=== PATIENT | male | born 1965 | race Caucasian/White ===

== ENCOUNTER 2017-06-24 18:20 | Emergency (ER) | payer MEDICAID ==
[~2017-06-24] VITALS: Ht 170.2 cm; Wt 71.0 kg
[2017-06-24] MEDS ORDERED: IBUPROFEN 800MG TABLET PO ONE (18:45)
[2017-06-24] MEDS ORDERED: MORPHINE SULFATE 4 MG/ML CPJ (NOT FOR IM USE) IV STA (20:09)
[2017-06-24] MEDS ORDERED: ONDANSETRON HCL 4MG/2ML VIAL IV STA (20:09)
[2017-06-24 20:39] LABS: BASOPHILS % 1.1 % (0.0-2.0); EOSINOPHILS % 1.7 % (0.0-5.0); HEMATOCRIT. 41.3 % (42.0-52.0); HEMOGLOBIN. 14.7 g/dL (14.0-18.0); LYMPHOCYTES % 26.6 % (20.0-50.0); MEAN CORPUSCULAR HEMOGLOBIN 29.4 pg (28.0-32.0); MEAN CORPUSCULAR VOLUME 82.7 fL (80.0-94.0); MEAN PLATELET VOLUME 6.9 fl (7.4-10.4); MONOCYTES % 6.4 % (2.0-8.0); NEUTROPHILS % 64.2 % (40.0-76.0); PLATELET 350 x1000/uL (130-400); RED CELL DISTRIBUTION WIDTH 13.9 % (11.6-14.6)
[2017-06-24 20:43] LABS: CHLORIDE 110 mEq/L (98-107)
[2017-06-24 20:46] LABS: PARTIAL THROMBOPLASTIN TIME 26.3 sec (23.4-31.0); PROTHROMBIN TIME 10.6 sec (9.4-11.6)
[2017-06-24 21:27] LABS: CLARITY URINE CLEAR (CLEAR); COLOR URINE YELLOW (YELLOW); KETONES URINE NEGATIVE (NEGATIVE); LEUKOCYTE ESTERASE URINE NEGATIVE (NEGATIVE); NITRITE URINE NEGATIVE (NEGATIVE); OCCULT BLOOD URINE NEGATIVE (NEGATIVE); PROTEIN URINE NEGATIVE (NEGATIVE); SPECIFIC GRAVITY URINE 1.022 (1.005-1.030); UROBILINOGEN URINE 0.2 E.U./dL (0.2-1.0)
[2017-06-25 00:15] VITALS: BP 110/76
== END 2017-06-25 00:15 | disposition home or self-care (01) ==
LOC: ER 18:20
DX: M54.5 Low back pain (principal); G89.29 Other chronic pain; R20.0 Anesthesia of skin; F17.200 Nicotine dependence, unspecified, uncomplicated; M48.061 Spinal stenosis, lumbar region without neurogenic claudication; R26.2 Difficulty in walking, not elsewhere classified; R15.9 Full incontinence of feces; M31.1 Thrombotic microangiopathy; R32 Unspecified urinary incontinence; R20.2 Paresthesia of skin; Z98.890 Other specified postprocedural states; Z98.1 Arthrodesis status
CPT/HCPCS: 36415; 71045; 72148; 80053; 81003; 85025; 85610; 85730; 93005; 96374; 96375; 99285; J2270; J2405; Z7610

== ENCOUNTER 2017-07-09 07:35 | Emergency (ER) | payer MEDICAID ==
[~2017-07-09] VITALS: Ht 170.2 cm; Wt 81.0 kg
[2017-07-09 08:57] VITALS: BP 118/78
[2017-07-09] MEDS ORDERED: BACITRACIN ZINC OINT UDPKT TOP ONE (09:15)
== END 2017-07-09 09:50 | disposition left against medical advice (07) ==
LOC: ER 08:38
DX: L02.416 Cutaneous abscess of left lower limb (principal)
CPT/HCPCS: 99281

== ENCOUNTER 2017-12-01 21:48 | Emergency (ER) | payer MEDICAID ==
[~2017-12-01] VITALS: Ht 170.2 cm; Wt 79.0 kg
[2017-12-01] MEDS ORDERED: KETOROLAC 30MG/ML VIAL IV ONE (23:30)
[2017-12-01] MEDS ORDERED: LIDOCAINE 5% PATCH TOP SCH (23:30)
[2017-12-02 00:37] LABS: CHLORIDE 103 mEq/L (98-107)
[2017-12-02 00:44] LABS: ETHANOL BLOOD < 10 mg/dL
[2017-12-02 00:48] LABS: BASOPHILS % 1.1 % (0.0-2.0); HEMATOCRIT. 42.2 % (42.0-52.0); HEMOGLOBIN. 14.4 g/dL (14.0-18.0); LYMPHOCYTES % 26.4 % (20.0-50.0); MEAN CORPUSCULAR HEMOGLOBIN 28.6 pg (28.0-32.0); MEAN CORPUSCULAR VOLUME 84.1 fL (80.0-94.0); MEAN PLATELET VOLUME 7.2 fl (7.4-10.4); MONOCYTES % 8.1 % (2.0-8.0); NEUTROPHILS % 61.4 % (40.0-76.0); PLATELET 372 x1000/uL (130-400); RED BLOOD CELL COUNT 5.02 mill/uL (4.7-6.1); RED CELL DISTRIBUTION WIDTH 14.7 % (11.6-14.6)
[2017-12-02 04:16] VITALS: BP 116/77
== END 2017-12-02 04:47 | disposition home or self-care (01) ==
LOC: ER 21:48
DX: R55 Syncope and collapse (principal); G89.29 Other chronic pain; M54.89 Other dorsalgia
CPT/HCPCS: 36415; 70450; 71045; 72125; 72128; 72131; 80053; 84484; 85025; 93005; 96374; 99291; G0482; J1885

== ENCOUNTER 2018-01-21 19:39 | Emergency (ER) | payer MEDICAID ==
[~2018-01-21] VITALS: Ht 170.2 cm; Wt 79.0 kg
[2018-01-21] MEDS ORDERED: KETOROLAC 30MG/ML VIAL IV STA (20:17)
[2018-01-21] MEDS ORDERED: SODIUM CHLORIDE 0.9% 1,000 ML IV ONE (20:17)
[2018-01-21 23:14] LABS: BASOPHILS % 0.8 % (0.0-2.0); HEMATOCRIT. 45.9 % (42.0-52.0); HEMOGLOBIN. 15.9 g/dL (14.0-18.0); LYMPHOCYTES % 26.9 % (20.0-50.0); MEAN CORPUSCULAR HEMOGLOBIN 29.7 pg (28.0-32.0); MEAN CORPUSCULAR VOLUME 85.4 fL (80.0-94.0); MEAN PLATELET VOLUME 7.2 fl (7.4-10.4); MONOCYTES % 6.5 % (2.0-8.0); NEUTROPHILS % 62.8 % (40.0-76.0); PLATELET 320 x1000/uL (130-400); RED BLOOD CELL COUNT 5.37 mill/uL (4.7-6.1); RED CELL DISTRIBUTION WIDTH 15.5 % (11.6-14.6)
[2018-01-22 01:11] LABS: CHLORIDE 108 mEq/L (98-107)
[2018-01-22 01:18] LABS: ETHANOL BLOOD < 10 mg/dL
[2018-01-22] MEDS ORDERED: MORPHINE SULFATE 4 MG/ML CPJ (NOT FOR IM USE) IV STA (07:35)
[2018-01-22] MEDS ORDERED: ONDANSETRON HCL 4MG/2ML INJ IV STA (07:35)
[2018-01-22 08:19] LABS: BASOPHILS % 1.3 % (0.0-2.0); EOSINOPHILS % 6.5 % (0.0-5.0); HEMATOCRIT. 45.7 % (42.0-52.0); HEMOGLOBIN. 15.6 g/dL (14.0-18.0); LYMPHOCYTES % 28.5 % (20.0-50.0); MEAN CORPUSCULAR VOLUME 85.2 fL (80.0-94.0); MEAN PLATELET VOLUME 6.8 fl (7.4-10.4); NEUTROPHILS % 56.7 % (40.0-76.0); PLATELET 269 x1000/uL (130-400); RED BLOOD CELL COUNT 5.37 mill/uL (4.7-6.1)
[2018-01-22 08:22] LABS: CHLORIDE 108 mEq/L (98-107)
[2018-01-22 08:25] LABS: PROTHROMBIN TIME 10.5 sec (9.1-11.1)
[2018-01-22] MEDS ORDERED: SODIUM CHLORIDE 0.45% 1,000 ML IV SCH (11:44)
[2018-01-22] MEDS ORDERED: GUAIFENESIN 200MG/10ML SUGAR FREE UDC PO PRN (11:45)
[2018-01-22] MEDS ORDERED: LORAZEPAM 2MG/ML CPJ IV PRN (11:45)
[2018-01-22] MEDS ORDERED: DOCUSATE SODIUM 100MG CAPSULE PO PRN (11:45)
[2018-01-22] MEDS ORDERED: DIPHENHYDRAMINE 50MG/ML VIAL IV PRN (11:45)
[2018-01-22] MEDS ORDERED: IPRATROPIUM/ALBUTEROL 0.5-3(2.5)MG/3ML NEB INH PRN (11:45)
[2018-01-22] MEDS ORDERED: LEVOFLOXACIN 500MG PREMIX 100 ML IV SCH (11:45)
[2018-01-22] MEDS ORDERED: MAGNESIUM/ALUMINUM HYDROXIDE/SIMETHICONE 30ML UDC PO PRN (11:45)
[2018-01-22] MEDS ORDERED: NA PHOS,M-B/NA PHOS,DI-BA ENEMA 118ML PR PRN (11:45)
[2018-01-22] MEDS ORDERED: HYDROCODONE/ACETAMINOPHEN 5/325MG TABLET PO PRN (11:45)
[2018-01-22] MEDS ORDERED: ACETAMINOPHEN 325MG TABLET PO PRN (11:45)
[2018-01-22] MEDS ORDERED: HYDROMORPHONE HCL/PF 2MG/ML CPJ IV PRN (11:45)
[2018-01-22] MEDS ORDERED: ENOXAPARIN 40MG/0.4ML SYR SUBCUT SCH (11:45)
[2018-01-22] MEDS ORDERED: ONDANSETRON HCL 4MG/2ML INJ IV PRN (11:45)
[2018-01-22] MEDS ORDERED: CLONIDINE 0.1MG TABLET PO PRN (11:45)
[2018-01-22] MEDS ORDERED: LORAZEPAM 1MG TABLET PO ONE (12:00)
[2018-01-22] MEDS ORDERED: LORAZEPAM 2MG/ML CPJ IV ONE (12:45)
[2018-01-22 17:34] LABS: CHLORIDE 111 mEq/L (98-107)
[2018-01-22 19:10] VITALS: BP 113/81
== END 2018-01-22 19:24 | disposition left against medical advice (07) ==
LOC: ER 19:39 → EDBEDREQ 01-22 11:38 → EDBEDREQTM 01-22 11:38 → ENRESERV 01-22 19:04 → CANRESERV 01-22 19:04 → ER 01-22 19:24 → ENRESERV 01-23 07:32 → CANRESERV 01-23 07:32 → CANBEDREQ 01-23 08:56
DX: R33.9 Retention of urine, unspecified (principal); E86.0 Dehydration; R26.9 Unspecified abnormalities of gait and mobility; R42 Dizziness and giddiness
CPT/HCPCS: 36415; 70450; 71045; 72131; 72148; 80048; 80053; 84484; 85025; 85610; 93005; 96361; 96374; 96375; 99285; G0482; J1885; J2060; J2270; J2405; J7030; J7040

== ENCOUNTER 2019-08-24 21:06 | Emergency (ER) | payer MEDICAID ==
[~2019-08-24] VITALS: Ht 170.2 cm; Wt 81.6 kg
[2019-08-24 21:16] VITALS: BP 140/92
[2019-08-24] MEDS ORDERED: KETOROLAC 30MG/ML VIAL IV STA (21:56)
[2019-08-24] MEDS ORDERED: SODIUM CHLORIDE 0.9% 1,000 ML IV ONE (21:56)
[2019-08-24] MEDS ORDERED: ALBUTEROL (0.083%) 2.5MG/3ML NEB HHN STA (22:31)
[2019-08-24] MEDS ORDERED: IPRATROPIUM BROMIDE (0.02%) 0.5MG/2.5ML NEB HHN STA (22:31)
== END 2019-08-25 00:18 | disposition left against medical advice (07) ==
LOC: ER 21:06 → CANBEDREQ 08-25 00:18
DX: R06.02 Shortness of breath (principal); R05 Cough; R53.1 Weakness; R00.0 Tachycardia, unspecified; R65.10 Systemic inflammatory response syndrome (SIRS) of non-infectious origin without acute organ dysfunction; J44.9 Chronic obstructive pulmonary disease, unspecified; Z98.890 Other specified postprocedural states
CPT/HCPCS: 71045; 99284; J7030; 80053; 81003; 83605; 83880; 84145; 84484